=== PATIENT | female | born 1980 | race Caucasian/White ===

== ENCOUNTER 2018-05-29 08:42 | Emergency (ER) | payer OTHER ==
--- OUTSIDE RECORDS SUMMARY | 2018-05-29 08:58 | XMS REPORT ---
:1980 External Reference #:[id number] Author Organization [facility] Address [address] [address] Phone [phone] Care Team Providers Name Role Phone Jeyson Gan MD Care Team Information [place] [employer] Quality Control Technician Unavailable Donato Abrams,N.P. Primary Care Physician Unavailable Payers Type Date Identification Numbers Payment Provider Subscriber Health Maintenance Policy Number: [facility] Community Plan Krystyna Velazquez Organization (HMO) [id number] Group Number: [id number] [address] PayID: [id number] [place] [address] Workers Compensation Onset: 11/20/2017 Policy Number: [employer] Krystyna Mooney [id number] Cristy Velazquez PayID: ADIRO [address] [place] [address] Problems Date Description Provider Status Onset: 02/08/2017 Acute bronchitis Joe Miguel MD Active Onset: 04/09/2018 Attention deficit hyperactivity Migel Mcbride MD Active disorder, combined type Onset: 10/31/2017 Acute pharyngitis Joe Miguel MD Active Family History Date Family Member(s) Problem(s) Comments Father Good Health Mother Thyroid Disease Children 4 First Son Alive And Well Second Son Alive And Well Third Son Alive And Well First Daughter Alive And Well First Brother Alive And Well Social History Type Date Description Comments Education Higest level completed, Bachelor's Degree Marital Status Occupation [employer] Work Status Currently Working ETOH Use Occasionally consumes alcohol Smoking Patient has never smoked General Hx Text 5 children, oldest 16 Allergies, Adverse Reactions, Alerts Date Description Reaction Status Severity Comments 07/25/2004 NKDA active Medications Medication Date Status Form Strength Qnty SIG Indications Ordering Provider Adderall 04/09 Active Tablets 15mg 1tabs 1 tab by F90.9 [place] mouth by ch, mouth qam/1 MD Migel tab by mouth qnoon/1 tab PO q4PM Fish Oil Active Capsules 306mg Unknown / Multivitamins Active Capsules Unknown Cefuroxime 10/31 Hx Tablets 500mg 14tab 1 tab by J20.9 [place] Axetil s mouth twice , - a day Joe 11/22 Ventolin HFA 10/31 Hx Aerosol 108(90Bas 8gm 2 puffs J20.9 [place] e) inhalation , - mcg/Act every 6 Joe 11/22 hours as needed Hydromet 10/31 Hx Syrup 5-1.5mg/5 60ml 5 [facility] ML milliliters , - by mouth Joe, 11/22 every 12 hours as needed cough Doxycycline 02/28 Hx Capsules 100mg 2caps 2 po x 1 S40.862A Kemar Pope dose Nicholas, - 03/13 Hydromet 02/08 Hx Syrup 5-1.5mg/5 60ml 5 ml by 0.9 Myriam ML mouth every , - 12 hours as oJe 02/28 needed cough Cefuroxime 02/08 Hx Tablets 500mg 14tab 1 tab by J20.9 Niko, Axetil s mouth twice Nicholas, - a day 02/28 Proair HFA 02/08 Hx Aerosol 108(90Bas 1unit 1 puff every 0.9 Niko, e) s 4 hours as Nicholas, - mcg/Act needed for 02/28 cough Prednisone 02/08 Hx Tablets 20mg 10tab 2 tab by J20.Madeline Pope, s mouth every Nicholas, - day for 5 Albuterol 02/08 Hx Nebulizer (2.5mg/3M 90uni 1 vial J20.9 Niko, L) 0.083% ts inhalation Nicholas, - every 4 02/28 hours needed wheezing or cough Adderall 07/09 Hx Tablets 20mg 6tabs 1 by mouth Vitk, in the Suki, - morning and MANAGER PHILOSOPHY 07/16 1 tab by mouth in the afternoon Hydroxyzine HCL 06/07 Hx Tablets 25mg 60tab 1 by mouth F41.1 Vitkus, s twice a day Suki, - as needed MANAGER PHILOSOPHY 02/08 for anxiety /2016 Adderall 05/14 Hx Tablets 20mg 60tab 1 by mouth F90.9 Vitkus, s in morning, Suki, - 1 in MANAGER PHILOSOPHY 04/09 afternoon. Adderall 04/12 Hx Tablets 20mg 60tab 1 by mouth 314.00 [place], W s Am, one noon MD Cornelius - 05/01 Adderall 04/12 Hx Tablets 10mg 30tab one at 5 314.00 [place], s pacemaker MD Cornelius - prn 05/01 Vyvanse 04/11 Hx Capsules 30mg 30cap one in the F90.9 Annie, s morning MD Cornelius - 05/14 Klonopin 10/18 Hx Tablets 0.5mg 30tab 1 by mouth F90.9 Annie, s at 4 pm MD Cornelius - 05/14 Adderall 10/18 Hx Tablets 10mg 150ta 3 by mouth 314.00 [place], bs every in the MD Cornelius - morning, 2 04/11 tabs 4 at night Adderall 06/30 Hx Tablets 20mg 30tab 1 by mouth 314.00 Annie, s every day 4 MD Cornelius - at night 12/28 Adderall 06/30 Hx Tablets 30mg 30tab 1 by mouth 314.00 [place], s in the am MD Cornelius - 10/18 Adderall 05/09 Hx Tablets 20mg 60tab 1 by mouth 314.00 [place], W s in in the MD Cornelius - morning and 06/30 one afternoon Adderall 04/18 Hx Tablets 10mg 60tab 1 by mouth 314.00 [place], W s bid MD Cornelius - 05/09 No Active 02/22 Hx Unknown Medications /2013 - 02/22 Escitalopram 02/22 Hx Tablets 10mg 30tab 1 by mouth 300.02 Edgar, Oxalate s every day Rosa Gomez MD 10/18 Amoxicillin/Clav 10/03 Hx Tablets 875-125mg 20tab 1 po bid 461.0 Edgar s with food Vee Gomez - 10/13 Cyclobenzaprine 10/03 Hx Tablets 10mg 15tab 1 po tid prn 847.1 Edgar HCL s Jason, - 02/14 Tylenol/Codeine 10/03 Hx Tablets 300-30mg 30tab 1 po q6hr 847.1 Edgar, # s prn cough Jason, - 02/14 Proair HFA 09/26 Hx Aerosol 108(90Bas 1unit 2 puffs qid Edgra e) s prn Jason - mcg/Act 10/26 Tylenol/Codeine 09/23 Hx Tablets 300-30mg 10tab 1 po q6hr 465.9 Edgar, # s prn cough Jason, - 09/28 Clobetasol 03/14 Hx Cream 0.05% 15GMS Rub In 692.6 Edgar, Sparingly Yudi, - bid, DO Not 03/15 Use On Face /2012 Or Genitals, DO Not Use For Over 10 Days Prednisone 03/14 Hx Tablets 20mg 10tab 2 po q am 692.6 s for 5d Yudi - 03/19 Omeprazole 12/15 Hx Capsules 20mg 30cap [address] ron Gomez - 02/14 Strattera 09/17 Hx Capsules 25mg 15cap 1 po qd 314.01 Edgar Rosa Olivares MD 10/02 Strattera 09/17 Hx Capsules 40mg 15cap 1 po qd 314.01 Bobby Rosa Olivares MD 10/02 Strattera 09/17 Hx Capsules 60mg 30cap 1 po qd with 314.01 Edgar, s food Rosa Gomez MD 02/14 Augmentin 01/09 Hx 875mg 20uni 1 po po bid 682.9 Edgar ts with Yudi, - food-take 01/10 activia yogurt daily while on antibiotic Naprosyn 01/09 Hx Tablets 500mg 60tab 1 po bid 682.9 Edgar s with food Yudi, - prn pain 02/14 Percocet 01/09 Hx Tablets 5-325mg 30tab 1-2 q 4-6 682.9 Edgar s hrs prn pain Rosa Bagley MD 01/10 Orphenadrine 09/05 Hx Tablets ER 100mg 30tab 1 po qd 847.0 Edgar Citrate 12HR s Rosa Gomez MD 10/05 Flovent HFA 07/10 Hx Aerosol 110mcg/Ac 1cani 1 puff bid 786.2 Edgar t ster Rosa Gomez MD 02/14 Tessalon 07/10 Hx Capsules 200mg 30cap 1 po bid prn 786.2 Edgar, s cough Rosa Gomez MD 02/14 Tylenol 09/21 Hx Tablets 300mg;30 30tab 1 po q4-6 786.2 Edgar, Codeine #3 mg s hours prn Rosa Gomez pain 02/14 Tussionex 06/29 Hx Liquid ER 3Oz 1 or 2 tsp 786.2 Gordo Hernándezkinetic po bid as Jason Extended Release - needed 02/14 Ritalin 07/25 Hx 15mg 0unit Every 4HRS Manuel-Herminio /2003 s hmaddy - Yasmeen, 06/29 M.[place] /2007 Glucosamine Hx Unknown /0000 - 02/28 Cla Hx Unknown /0000 - 11/22 Vital Signs Date Vital Result Comment 11/22/2017 Body Temperature 98.7 F Weight 160.00 lb Heart Rate 80 /min BP Systolic 100 mmHg BP Diastolic 66 mmHg Height 66 inches 5'6" O2 % BldC Oximetry 100 % BMI (Body Mass Index) 25.8 kg/m2 10/31/2017 Body Temperature 98.3 F Weight 155.00 lb Heart Rate 82 /min BP Systolic 112 mmHg BP Diastolic 70 mmHg Respiratory Rate 16 /min Height 67 inches 5'7" O2 % BldC Oximetry 98 % BMI (Body Mass Index) 24.3 kg/m2 02/28/2017 Body Temperature 98.5 F Heart Rate 76 /min BP Systolic 104 mmHg BP Diastolic 68 mmHg Respiratory Rate 18 /min Height 67 inches 5'7" 02/08/2017 Body Temperature 98.0 F Weight 150.00 lb O2 % BldC Oximetry 96 % 06/07/2015 Weight 155.50 lb Heart Rate 80 /min BP Systolic 123 mmHg BP Diastolic 73 mmHg Height 67 inches 5'7" O2 % BldC Oximetry 100 % BMI (Body Mass Index) 24.4 kg/m2 05/14/2015 Weight 159.38 lb Heart Rate 69 /min BP Systolic 114 mmHg BP Diastolic 69 mmHg Height 67 inches 5'7" O2 % BldC Oximetry 99 % BMI (Body Mass Index) 25.0 kg/m2 10/18/2014 Body Temperature 97.9 F Weight 154.00 lb Heart Rate 79 /min BP Systolic 103 mmHg BP Diastolic 64 mmHg Height 67 inches 5'7" O2 % BldC Oximetry 98 % BMI (Body Mass Index) 24.1 kg/m2 06/30/2014 Body Temperature 98.0 F Heart Rate 100 /min Height 67 inches 5'7" O2 % BldC Oximetry 99 % 05/09/2014 Weight 164.00 lb Heart Rate 64 /min BP Systolic 102 mmHg BP Diastolic 60 mmHg Respiratory Rate 14 /min Height 67 inches 5'7" BMI (Body Mass Index) 25.7 kg/m2 04/18/2014 Weight 164.00 lb Heart Rate 68 /min BP Systolic 102 mmHg BP Diastolic 60 mmHg Respiratory Rate 12 /min Height 67 inches 5'7" BMI (Body Mass Index) 25.7 kg/m2 02/22/2014 Weight 164.00 lb BP Systolic 122 mmHg BP Diastolic 74 mmHg Height 66.75 inches 5'6.75" BMI (Body Mass Index) 25.9 kg/m2 10/10/2013 BP Systolic 116 mmHg BP Diastolic 60 mmHg Height 66.75 inches 5'6.75" 10/03/2013 BP Systolic 110 mmHg BP Diastolic 60 mmHg Height 66.75 inches 5'6.75" 09/23/2013 BP Systolic 100 mmHg BP Diastolic 68 mmHg Height 66.75 inches 5'6.75" 12/15/2012 Weight 148.00 lb BP Systolic 104 mmHg BP Diastolic 62 mmHg Height 66.75 inches 5'6.75" BMI (Body Mass Index) 23.4 kg/m2 09/08/2011 Weight 149.00 lb BP Systolic 102 mmHg BP Diastolic 58 mmHg Height 66.75 inches 5'6.75" BMI (Body Mass Index) 23.5 kg/m2 01/09/2011 Body Temperature 100.4 F Mercury Temp 07/10/2009 Body Temperature 98.0 F 06/29/2008 Body Temperature 98.6 F Height 66.75 inches 5'6.75" 10/04/2007 Weight 158.00 lb BP Systolic 100 mmHg BP Diastolic 58 mmHg Height 66.75 inches 5'6.75" BMI (Body Mass Index) 24.9 kg/m2 07/25/2004 Heart Rate 84 /min BP Systolic Sitting 100 mmHg BP Diastolic Sitting 60 mmHg Respiratory Rate 12 /min Results Test Date Test Result H/L Range Note Laboratory test finding 09/17/2012 Esr 5 mm/hr 0-20 TSH 1.98 uIU/mL 0.34-5.60 CBC With Auto Diff 09/17/2012 WBC 9.7 K/uL 4.1-11.0 RBC 4.36 M/uL 4.00-5.40 Hemoglobin 13.2 gm/dL 12.0-16.0 Hematocrit 40.1 % 36.0-47.0 MCV 92.0 fL 80.0-97.0 MCH 30.3 pg 27.0-32.0 MCHC 32.9 g/dL 32.0-36.0 RDW 14.4 % 11.5-14.5 PLT Count 204 K/ul 140-400 Neutrophil 65.0 % 35.0-75.0 Lymphocyte 28.4 % 16.0-52.0 Monocyte 5.5 % 2.0-10.0 Eosinophil 0.8 % 0.0-5.0 Basophil 0.3 % 0.0-4.0 Abs Neutrophils 6.3 K/uL 2.1-8.0 Abs Lymphocytes 2.8 K/uL 0.8-5.5 Abs Monocytes 0.5 K/uL 0.1-1.0 Abs Eosinophils 0.1 K/uL 0.0-0.5 Abs Basophils 0.0 K/uL 0.0-0.3 Comprehensive Metabolic (CMP) 09/17/2012 Sodium 140 mmol/L 134-142 Potassium 4.8 mmol/L 3.5-5.2 Chloride 106 mmol/L 97-109 Carbon Dioxide 30 mmol/L 24-34 Glucose 95 mg/dL 70-105 BUN 15 mg/dL 6-26 Creatinine 0.9 mg/dL 0.5-1.4 Calcium 9.8 mg/dL 8.5-10.2 Total Protein 7.1 g/dL 6.0-8.0 Albumin 4.8 g/dL 3.6-4.9 Globulin 2.3 g/dL 2.0-3.5 A/G Ratio 2.1 Ratio 1.0-2.2 Total Bilirubin 0.4 mg/dL 0.1-1.3 Alkaline Phosphatase 44 U/L 24-140 Alt 18 U/L 3-42 Ast 23 U/L 8-42 Anion Gap 9 mmol/L 6-14 Deborah Egfr >60 >60 1 Non Deborah Egfr >60 >60 2 Laboratory test finding 09/17/2012 Vit D,25 Hydroxy 32 ng/mL 31-100 Laboratory test finding 01/29/2012 Vit D,25 Hydroxy 31 ng/mL 31-100 3 CBC With Auto Diff 09/08/2011 WBC 5.6 K/uL 4.1-11.0 4 RBC 4.28 M/uL 4.00-5.40 4 Hemoglobin 13.4 gm/dL 12.0-16.0 4 Hematocrit 38.2 % 36.0-47.0 4 MCV 89.3 fL 80.0-97.0 4 MCH 31.4 pg 27.0-32.0 4 MCHC 35.2 g/dL 32.0-36.0 4 RDW 14.0 % 11.5-14.5 4 PLT Count 204 K/ul 140-400 4 Neutrophil 61.9 % 35.0-75.0 4 Lymphocyte 32.3 % 16.0-52.0 4 Monocyte 4.8 % 2.0-10.0 4 Eosinophil 0.6 % 0.0-5.0 4 Basophil 0.4 % 0.0-4.0 4 Abs Neutrophils 3.5 K/uL 2.1-8.0 4 Abs Lymphocytes 1.8 K/uL 0.8-5.5 4 Abs Monocytes 0.3 K/uL 0.1-1.0 4 Abs Eosinophils 0.0 K/uL 0.0-0.5 4 Abs Basophils 0.0 K/uL 0.0-0.3 4 Comprehensive Metabolic (CMP) 09/08/2011 Sodium 142 mmol/L 135-144 4 Potassium 5.1 mmol/L 3.5-5.1 4 Chloride 108 mmol/L High 97-107 4 Carbon Dioxide 28 mmol/L 23-33 4 Glucose 99 mg/dL 70-105 4 BUN 13 mg/dL 7-25 4 Creatinine 0.9 mg/dL 0.6-1.2 4 Calcium 9.5 mg/dL 8.6-10.3 4 BUN/CR 15 ratio 12-20 4 Total Protein 6.9 g/dL 6.0-8.5 4 Albumin 4.4 g/dL 3.5-5.7 4 Globulin 2.5 g/dL 2.0-3.5 4 A/G Ratio 1.8 Ratio 1.0-2.2 4 Total Bilirubin 0.7 mg/dL 0.3-1.3 4 Alkaline Phosphatase 37 U/L 34-104 4 Alt 15 U/L 7-52 4 Ast 21 U/L 13-39 4 Anion Gap 11 mmol/L 8-16 4 Non Deborah Egfr >60 >60 4, 5 Deborah Egfr >60 >60 4, 6 Laboratory test finding 09/08/2011 TSH 1.33 uIU/mL 0.34-5.60 4 Esr 3 mm/hr 0-20 4 Sigrid Screen Neg Neg 4 Vit D,25 Hydroxy 29 ng/mL Low 31-100 4 Laboratory test finding 09/08/2011 Rheumatoid Factor <15 IU/mL (0-15) 4 , 7 CBC With Auto Diff 10/04/2007 WBC 7.2 K/ul 4.0-10.9 RBC 4.73 M/ul 4.20-5.40 Hemoglobin 14.4 GM/dl 12.5-16.0 Hematocrit 41.5 % 36.0-47.0 MCV 87.8 FL 80.0-97.0 MCH 30.5 pg 27.0-31.0 MCHC 34.7 g/dL 32.0-36.0 RDW 14.1 % 11.5-14.5 Platelet Count 289 K/ul 140-440 Neutrophils 51.9 % 50-70 Lymphocytes 38.1 % 20-44 Monocytes 5.5 % 2-9 Eosinophil 4.1 % High 0-4 Basophil 0.4 % 0-2 Absolute Neutrophils 3.8 K/ul 2.05-7.63 Absolute Lymphocytes 2.7 K/ul 0.8-4.8 Absolute Monocytes 0.4 K/ul 0.1-1.0 Absolute Eosinophils 0.3 K/ul 0.1-0.5 Absolute Basophils 0.0 K/ul Low 0.1-0.3 CMP 10/04/2007 Sodium 141 mmol/L 135-144 Potassium 4.4 mmol/L 3.6-5.2 Chloride 105 mmol/L 97-110 Carbon Dioxide 29 mmol/L 23-33 Glucose 88 mg/dL 70-105 BUN 18 mg/dL 6-22 Creatinine 0.8 mg/dL 0.5-1.3 BUN/CR 23 Ratio High 12.0-20.0 Calcium 10.2 mg/dL 8.6-10.2 Total Protein 7.0 g/dL 5.8-7.8 Albumin 4.4 g/dL 3.5-4.8 Globulin 2.6 g/dL 2.0-3.5 A/G Ratio 1.7 Ratio 1.0-2.2 Total Bilirubin 0.7 mg/dL 0.3-1.2 Alkaline Phosphatase 58 U/L 24-140 Alt 27 U/L 4-45 Ast 27 U/L 12-40 Anion Gap 11 mmol/L 8-16 GFR Calculation > 60 mL/min 8 GFR For > 60 mL/min 9 Laboratory test finding 10/04/2007 TSH 1.79 uIU/ml 0.34-5.60 1 Concerning GFR Guidelines for Americans: Normal function or mild renal disease, if clinically at risk: >/=60 mL/min Moderately decreased: 30-59 Severely decreased: 15-29 Renal failure: <15 2 Concerning GFR Guidelines: Normal function or mild renal disease, if clinically at risk: >/=60 mL/min Moderately decreased: 30-59 Severely decreased: 15-29 Renal failure: <15 Glomerular Filtration Rate (GFR) is estimated based on the MDRD equation, which assumes a steady state for creatinine as recommended by the National Kidney Disease Education Program in conjunction with the National Institutes of Health and the National Kidney Foundation. Clinical conditions in which it may be necessary to measure GFR by using clearance methods include extremes of age and body size, severe malnutrition or obesity, diseases of skeletal muscle, paraplegia or quadriplegia, vegetarian diet, rapidly changing kidney function, and calculation of the dose of potentially toxic drugs that are excreted by the kidneys. 3 This sample is drawn by: 4 This sample is drawn by:[facility] 5 Concerning GFR Guidelines: Normal function or mild renal disease, if clinically at risk: >/=60 mL/min Moderately decreased: 30-59 Severely decreased: 15-29 Renal failure: <15 Glomerular Filtration Rate (GFR) is estimated based on the MDRD equation, which assumes a steady state for creatinine as recommended by the National Kidney Disease Education Program in conjunction with the National Institutes of Health and the National Kidney Foundation. Clinical conditions in which it may be necessary to measure GFR by using clearance methods include extremes of age and body size, severe malnutrition or obesity, diseases of skeletal muscle, paraplegia or quadriplegia, vegetarian diet, rapidly changing kidney function, and calculation of the dose of potentially toxic drugs that are excreted by the kidneys. 6 Concerning GFR Guidelines for Americans: Normal function or mild renal disease, if clinically at risk: >/=60 mL/min Moderately decreased: 30-59 Severely decreased: 15-29 Renal failure: <15 7 Unless otherwise specified, testing performed by [facility] [address] [place] [id number] Concerning GFR GUIDELINES: Normal Function or Mild Renal Disease, if clinically at risk: >/=60mL/min Moderately decreased: 30-59 Severely decreased: 15-29 Renal Failure: <15 Glomerular Filtration Rate (GFR) is estimated based on the MDRD equation, which assumes a steady state for creatinine as recommended by the National Kidney Disease Education Program in conjunction with the National Institutes of Health and the National Kidney Foundation. Clinical conditions in which it may be necessary to measure GFR by using clearance methods include extremes of age and body size, severe malnutrition or obesity, diseases of skeletal muscle, paraplegia or quadriplegia, vegetarian diet, rapidly changing kidney function, and calculation of the dose of potentially toxic drugs that are excreted by the kidneys. 9 Concerning GFR GUIDELINES: Normal Function or Mild Renal Disease, if clinically at risk: >/=60mL/min Moderately decreased: 30-59 Severely decreased: 15-29 Renal Failure: <15 Procedures Date CPT Code Description Status 10/18/2014 89364 Measure Blood Oxygen Level Single Determination Completed Encounters Type Date Location Provider CPT E/M Dx Office Visit 11/22/2017 [place] [address] S13.4xxA 10:05a Office Visit 10/31/2017 [facility] Joe Miner, [address]130 J20.9 3:30p J02.9 Office Visit 02/28/2017 12:40p [place] [address] S40.862A Office Visit 02/08/2017 3:50p [facility] Joe Miner, 00256 J20.9 Office Visit 06/07/2015 11:00a Suki Hahn, [facility] [address]3689 F90.9 F41.1 Office Visit 05/14/2015 11:30a Suki Hahn, [facility] 96586 F90.9 R14.0 Office Visit 04/11/2015 11:45[place] [address] 314.00 300.02 Office Visit 10/18/2014 1:15p [place] [address] 314.00 Office Visit 06/30/2014 2:00p [place] [address] 314.00 Office Visit 05/09/2014 11:00[place] [address] 314.00 Office Visit 04/18/2014 2:00p [place] [address] 314.00 300.02 V70.0 Office Visit 02/22/2014 1:50p [place] [address] 300.02 Office Visit 10/10/2013 3:50[place] [address] 807.01 461.0 Office Visit 10/03/2013 3:10p [place] [address] 461.0 847.1 Office Visit 09/23/2013 8:50a [place] [address] 465.9 Office Visit 03/14/2013 1:10p [place] [address] 692.6 Office Visit 12/15/2012 2:50p [place] [address] 789.01 Office Visit 09/17/2012 3:10p [place] [address] 780.79 268.9 314.01 Office Visit 09/08/2011 10:30[place] [address] V70.0 780.79 454.9 Office Visit 01/09/2011 10:30[place] [address] 682.9 Office Visit 09/05/2009 2:30p [place] [address] 847.0 Office Visit 07/10/2009 1:50p [place] [address] 786.2 Office Visit 09/21/2008 1:20[place] [address] 786.2 Office Visit 06/29/2008 2:30p [place] [address] 786.2 Office Visit 01/18/2008 1:50p [place] [address] 789.01 Office Visit 10/04/2007 1:20p [place] [address] 780.79 461.0 530.81 Plan of Care Future Appointment(s):09/24/2018 11:00 am - Migel Mcbride MD at [facility] MD Rae04/09/2018 - Migel Mcbride MDF90.2 Attention-deficit hyperactivity disorder, combined typeF10.10 Alcohol abuse, uncomplicated
[2018-05-29 09:09] VITALS: BP 105/63
[2018-05-29] MEDS ORDERED: Albuterol 2.5 MG/3 ML NEB.SOL* (0.083%) INH ONE (10:13)
--- NOTE | 2018-05-29 10:20 | UC ---
UC General HPI - HPI Summary HPI Summary: SICK X 5 DAYS. LOST VOICE/HEAD CONGESTION. MOVED INTO CHEST CAUSING COUGH, CONGESTION, WHEEZING AND ITCHY LUNGS. HX ASTHMA BUT RAN OUT OF THEW INHALER. NO CP OR FEVER. 12 WEEKS . - History of Current Complaint Chief Complaint: UCRespiratory Stated Complaint: SINUS PRESSURE, COUGH Time Seen by Provider: 05/29/18 10:03 Hx Obtained From: Patient Hx Last Menstrual Period: unknown Onset/Duration: Gradual Onset Timing: Constant Pain Intensity: 0 - Allergy/Home Medications Allergies/Adverse Reactions: Allergies Allergy/AdvReac Type Severity Reaction Status Date / Time No Known Allergies Allergy Verified 05/29/18 09:04 PMH/Surg Hx/FS Hx/Imm Hx - Additional Past Medical History Additional PMH: 12 WEEKS Respiratory History: Asthma - Surgical History Surgical History: Yes Surgery Procedure, Year, and Place: appendectomy 1998. varicose vein 2011. gallbladder removal 2016. breast augmentation 2017 - Family History Known Family History: Positive: None - Social History Lives: With Family Alcohol Use: None Substance Use Type: None Smoking Status (MU): Never Smoked Tobacco - Immunization History Vaccination Up to Date: Yes Review of Systems Constitutional: Negative Skin: Negative Eyes: Negative ENT: Sinus Congestion Respiratory: Shortness Of Breath, Cough Cardiovascular: Negative Gastrointestinal: Negative Genitourinary: Negative Motor: Negative Neurovascular: Negative Musculoskeletal: Negative Neurological: Negative Psychological: Negative Is Patient Immunocompromised?: No All Other Systems Reviewed And Are Negative: Yes Physical Exam Triage Information Reviewed: Yes Appearance: Well-Appearing Vital Signs: Initial Vital Signs Temp 98.3 F 05/29/18 09:01 Pulse 65 05/29/18 09:01 Resp 16 05/29/18 09:01 BP 105/63 05/29/18 09:01 Pulse Ox 98 05/29/18 09:01 Vital Signs Reviewed: Yes Eyes: Positive: Conjunctiva Clear ENT: Positive: Pharynx normal, TMs normal. Negative: Nasal drainage Neck: Positive: Supple, Nontender, No Lymphadenopathy Respiratory: Positive: No respiratory distress, Decreased breath sounds, Other: - HARSH BRONCHOSPASTIC COUGH Cardiovascular: Positive: RRR, No Murmur Abdomen Description: Positive: Nontender, No Organomegaly, Soft Bowel Sounds: Positive: Present Musculoskeletal: Positive: ROM Intact, No Edema Neurological: Positive: Alert Psychological: Positive: Age Appropriate Behavior Skin Exam: Normal Re-Evaluation - Re-Evaluation First Eval Change: Improved - LESS COUGH AND BETTER AERATION POST NEB TX. Course/Dx - Course Course Of Treatment: NO CONCERN FOR PNEUMONIA. NOTHING TO SUGGEST BACTERIAL INFECTION. - Differential Dx - Multi-Symptom Provider Diagnoses: ASTHMA FLARE. Discharge - Sign-Out/Discharge Documenting (check all that apply): Patient Departure All imaging exams completed and their final reports reviewed: No Studies - Discharge Plan Condition: Stable Disposition: HOME Prescriptions: Albuterol HFA INHALER* [Ventolin HFA Inhaler*] 2 puff INH Q6H #1 mdi Patient Education Materials: Asthma (DC) Referrals: No Primary Care Phys,NOPCP [Primary Care Provider] - Additional Instructions: YOU MAY TAKE PLAIN MUCINEX PER LABEL. [facility] UP WITH [facility] IN 5 DAYS - Billing Disposition and Condition Condition: STABLE Disposition: Home
== END 2018-05-29 10:55 | disposition home or self-care (01) ==
LOC: UCCORT 08:42
DX: O26.891 Other specified pregnancy related conditions, first trimester (principal); J45.909 Unspecified asthma, uncomplicated; O09.511 Supervision of elderly primigravida, first trimester; Z3A.12 12 weeks gestation of pregnancy
CPT/HCPCS: 99202; G0463